=== PATIENT | female | born 1985 | race Asian ===

== ENCOUNTER 2016-07-09 00:15 | Inpatient (IN) | payer SELFPAY ==
[~2016-07-09] VITALS: Ht 160 cm; Wt 77.6 kg
[2016-07-09 00:40] VITALS: BP 97/63
[2016-07-09] MEDS ORDERED: CITRIC ACID/SODIUM CITRATE 30 ML UDC PO SCH (01:05)
[2016-07-09] MEDS ORDERED: IBUPROFEN 800 MG TAB PO PRN (01:05)
[2016-07-09] MEDS: LACTATED RINGERS 1,000 ML IV SCH ×2 (01:39→02:48)
[2016-07-09 02:28] LABS: BASOPHILS % (AUTO) 0.4 % (0.0-2.0); EOSINOPHILS # (AUTO) 0.2 K/uL (0-0.4); EOSINOPHILS % (AUTO) 1.7 % (0.0-4.0); HEMATOCRIT 31.7 % (36-48); HEMOGLOBIN 10.1 g/dL (12.0-16.0); LYMPHOCYTES # (AUTO) 1.9 K/uL (2.5-16.5); LYMPHOCYTES % (AUTO) 18.2 % (20.5-51.1); MEAN CORPUSCULAR HEMOGLOBIN 28 pg (27-31); MEAN CORPUSCULAR HGB CONC 32 g/dL (33-37); MEAN CORPUSCULAR VOLUME 87 fL (80-94); MONOCYTES # (AUTO) 0.7 K/uL (0.8-1.0); MONOCYTES % (AUTO) 6.6 % (1.7-9.3); NEUTROPHILS # (AUTO) 7.7 K/uL (1.8-7.7); NEUTROPHILS % (AUTO) 73.1 % (42.2-75.2); PLATELET COUNT (AUTO) 139 K/uL (140-450); RED BLOOD CELL COUNT(AUTO) 3.64 MIL/uL (4.20-5.40); RED CELL DISTRIBUTION WIDTH 16.6 % (11.6-13.7); WHITE BLOOD COUNT (AUTO) 10.5 K/uL (4.8-10.8)
[2016-07-09 02:34] LABS: APPEARANCE,URINE HAZY (CLEAR); BILIRUBIN,URINE NEGATIVE (NEGATIVE); BLOOD, URINE NEGATIVE (NEGATIVE); COLOR,URINE YELLOW (YELLOW); LEUKOCYTE ESTERASE ,URINE TRACE (NEGATIVE); NITRITE, URINE NEGATIVE (NEGATIVE); PH,URINE 6.5 (5.0-9.0); PROTEIN,URINE TRACE (NEGATIVE); UGLUCOSE NEGATIVE (NEGATIVE); UROBILINOGEN,URINE 0.2 EU/dL (0.2 - 1)
[2016-07-09 02:55] LABS: BACTERIA,URINE 3+ /HPF (None Seen); RBC,URINE 0-5 (RARE) /HPF (0-5)
[2016-07-09] MEDS ORDERED: IRON65TA11 PO (03:09)
[2016-07-09] MEDS ORDERED: CITRIC ACID/SODIUM CITRATE 30 ML UDC ONE (05:27)
[2016-07-09] MEDS ORDERED: ceFAZolin 1,000 MG VIAL ONE (05:28)
[2016-07-09] MEDS ORDERED: ePHEDrine 50 MG/ML VIAL IV ONE (05:59)
[2016-07-09] MEDS ORDERED: BUPIVACAINE-MPF 0.75% 10 ML VIAL INJ ONE (05:59)
[2016-07-09] MEDS ORDERED: MORPHINE PRES FREE 10 MG/10 ML AMP IV ONE (06:07)
[2016-07-09] MEDS ORDERED: fentaNYL 0.05 MG/ML VIAL ONE (06:07)
[2016-07-09] MEDS ORDERED: OXYTOCIN 10 UNITS/ML VIAL ONE (06:09)
[2016-07-09] MEDS ORDERED: TRIAMCINOLONE 40 MG/ML 5ML VIAL ONE (06:09)
[2016-07-09] MEDS ORDERED: METHYLERGONOVINE 0.2 MG/ML AMP ONE (06:10)
[2016-07-09] MEDS ORDERED: oxyCODONE/APAP 5/325 MG 1 TAB TAB PO PRN (06:20)
[2016-07-09] MEDS ORDERED: MEASLES, MUMPS, AND RUBELLA 1 VIAL SQVAC PRN (06:20)
[2016-07-09] MEDS ORDERED: TEMAZEPAM 15 MG CAP PO PRN (06:20)
[2016-07-09] MEDS ORDERED: METHYLERGONOVINE 0.2 MG/ML AMP IM PRN (06:20)
[2016-07-09] MEDS ORDERED: TRIMETHOBENZAMIDE 200 MG/2 ML SYR IM PRN (06:20)
[2016-07-09] MEDS ORDERED: SIMETHICONE 80 MG TAB.CHEW PO PRN (06:20)
[2016-07-09] MEDS ORDERED: NALOXONE 0.4 MG/ML VIAL IVP PRN ×3 (06:25)
[2016-07-09] MEDS ORDERED: KETOROLAC 60 MG/2 ML VIAL IM PRN (06:25)
[2016-07-09] MEDS ORDERED: ONDANSETRON 4 MG/2 ML VIAL IVP PRN ×2 (06:25)
[2016-07-09] MEDS ORDERED: diphenhydrAMINE 50 MG/ML VIAL IVP PRN (06:25)
[2016-07-09] MEDS ORDERED: NALBUPHINE 10 MG/ML AMP IVP PRN (06:25)
[2016-07-09] MEDS: OXYTOCIN 20 UNITS/LR PREMIX 1,000 ML IV SCH ×5 (07:06→23:12)
[2016-07-09] MEDS ORDERED: OXYTOCIN 20 UNITS/LR PREMIX 1,000 ML IV ONE (07:23)
--- NOTE | 2016-07-09 09:54 | NUR ---
PATIENT HAS BEEN SCREENED AND CATEGORIZED LOW NUTRITION RISK. PATIENT WILL BE SEEN WITHIN 7 DAYS OF ADMISSION. 07/15/[address]
[2016-07-09] MEDS: DOCUSATE SOD/SENNA 50/8.6 MG 1 TAB PO SCH (20:38)
[2016-07-10 06:49] LABS: BASOPHILS % (AUTO) 0.2 % (0.0-2.0); EOSINOPHILS # (AUTO) 0.3 K/uL (0-0.4); EOSINOPHILS % (AUTO) 1.6 % (0.0-4.0); HEMATOCRIT 26.5 % (36-48); HEMOGLOBIN 8.9 g/dL (12.0-16.0); LYMPHOCYTES # (AUTO) 1.4 K/uL (2.5-16.5); LYMPHOCYTES % (AUTO) 8.4 % (20.5-51.1); MEAN CORPUSCULAR HEMOGLOBIN 29 pg (27-31); MEAN CORPUSCULAR HGB CONC 33 g/dL (33-37); MEAN CORPUSCULAR VOLUME 86 fL (80-94); MONOCYTES # (AUTO) 0.8 K/uL (0.8-1.0); MONOCYTES % (AUTO) 5.1 % (1.7-9.3); NEUTROPHILS # (AUTO) 13.9 K/uL (1.8-7.7); NEUTROPHILS % (AUTO) 84.7 % (42.2-75.2); PLATELET COUNT (AUTO) 137 K/uL (140-450); RED BLOOD CELL COUNT(AUTO) 3.08 MIL/uL (4.20-5.40); RED CELL DISTRIBUTION WIDTH 16.4 % (11.6-13.7); WHITE BLOOD COUNT (AUTO) 16.4 K/uL (4.8-10.8)
[2016-07-10] MEDS: IBUPROFEN 800 MG TAB PO PRN (08:40)
[2016-07-11] MEDS: IBUPROFEN 800 MG TAB PO PRN (00:52)
[2016-07-11] MEDS: HYDROcodone/APAP 5/325 MG 1 TAB TAB PO PRN ×2 (09:49→20:18)
[2016-07-11] MEDS: DOCUSATE SOD/SENNA 50/8.6 MG 1 TAB PO SCH (20:18)
== END 2016-07-12 13:25 | disposition home or self-care (01) | DRG 766 ==
LOC: MLD 00:15 → MFCC 07:29
PROVIDERS: ADMIT Obstetrics & Gynecology; ATTEND Obstetrics & Gynecology
PROC: 10D00Z1 Extraction of Products of Conception, Low, Open Approach (ICD-10-PCS; principal; 2016-07-09 06:00)
DX: O32.2XX0 Maternal care for transverse and oblique lie, not applicable or unspecified (principal); O99.02 Anemia complicating childbirth; D64.9 Anemia, unspecified; Z37.0 Single live birth; Z3A.39 39 weeks gestation of pregnancy; Z83.3 Family history of diabetes mellitus; Z28.21 Immunization not carried out because of patient refusal
CPT/HCPCS: 36415; 51702; 81001; 85025; 86592; 86886; 86900; 86901; 87086; J0690; J2210; J2270; J2590; J3010; J3301; J3490; J7060; J7120